=== PATIENT | male | born 1960 | race Caucasian/White ===

== ENCOUNTER → 2020-02-16 | Outpatient (CLI) | payer OTHER ==
--- NOTE | 2020-02-16 10:37 | RAD ---
EXAM DESCRIPTION: Ankle,Left 3 Views CLINICAL HISTORY: 59 years, Male, PAIN IN LEFT FOOT AND JOINT OF LEFT FOOT COMPARISON: None. TECHNIQUE: AP/lateral/oblique of the left ankle FINDINGS: Fracture of the medial malleolus is transversely oriented with a gap at the fracture site of approximately 4 mm. Density along the medial aspect of the fracture site suggests bridging callus formation (nonacute fracture with partial healing) although preexistent periostosis or dystrophic soft tissue calcification might be considered. There is some soft tissue swelling of the lower leg and ankle region. The lateral malleolus appears intact. With a fracture in this area, the possibility of a proximal fibular fracture must be considered. X-rays of the entire length of the left tibia and fibula are recommended to rule out a more proximal fibular fracture. Intact proximal metatarsals. Intact dome of the talus. Lateral view shows no evidence of fracture of the body of the talus or calcaneus. Prominent dorsal calcaneal spurring is seen. Narrow ankle joint with anterior and posterior spurring and small ankle joint effusion. IMPRESSION: Fractured medial malleolus with periosteal new bone formation and moderate surrounding soft tissue swelling. See above. Electronically signed by: Kasi Wood MD 02/16/2020 10:35 AM CDT
== END ==
LOC: RAD 08:10
PROVIDERS: ATTEND Orthopaedic Surgery
DX: S82.55XA Nondisplaced fracture of medial malleolus of left tibia, initial encounter for closed fracture (principal)